=== PATIENT | female | born 1990 | race Caucasian/White ===

== ENCOUNTER 2018-07-19 04:45 | Inpatient (IN) | payer BC ==
[2018-07-18 09:53] LABS: ABSOLUTE EOSINOPHILS # (AUTO) 0.2 10^3/uL (0.0-0.6); ABSOLUTE LYMPHOCYTES (AUTO) 1.4 10^3/uL (0.5-4.7); ABSOLUTE MONOCYTES (AUTO) 0.6 10^3/uL (0.1-1.4); ABSOLUTE NEUT (AUTO) 9.8 10^3/uL (1.7-8.2); EOSINOPHILS % (AUTO) 1.8 % (0-6); HEMATOCRIT 38.9 % (36.0-47.0); HEMOGLOBIN 13.2 g/dL (12.0-15.5); LYMPHOCYTES % (AUTO) 11.7 % (13-45); MEAN CORPUSCULAR HEMOGLOBIN 30.8 pg (27.0-33.4); MEAN CORPUSCULAR VOLUME 90 fl (80-97); MONOCYTES % (AUTO) 5.2 % (3-13); PLATELET COUNT 190 10^3/uL (150-450); RED CELL DISTRIBUTION WIDTH 13.9 % (11.5-14.0); SEGMENTED NEUTROPHILS % (AUTO) 81.3 % (42-78); TOTAL CELLS COUNTED % (AUTO) 100 %; WHITE BLOOD COUNT 12.1 10^3/uL (4.0-10.5)
[2018-07-18 10:06] LABS: APPEARANCE,URINE CLEAR; BILIRUBIN,URINE NEGATIVE (NEGATIVE); COLOR,URINE YELLOW; GLUCOSE, URINE NEGATIVE (NEGATIVE); KETONES,URINE NEGATIVE (NEGATIVE); LEUKOCYTE ESTERASE,URINE SMALL (NEGATIVE); NITRITE,URINE NEGATIVE (NEGATIVE); PROTEIN,URINE NEGATIVE (NEGATIVE); URINE SPECIFIC GRAVITY 1.005; UROBILINOGEN,URINE NEGATIVE mg/dL (<2.0)
[2018-07-18 10:18] LABS: URINE AMPHETAMINES SCREEN NEGATIVE; URINE BARBITURATES SCREEN NEGATIVE; URINE BENZODIAZEPINES SCREEN NEGATIVE; URINE COCAINE SCREEN NEGATIVE; URINE MARIJUANA (THC) SCREEN NEGATIVE; URINE METHADONE SCREEN NEGATIVE; URINE PHENCYCLIDINE SCREEN NEGATIVE
[2018-07-19] MEDS ORDERED: CEFAZOLIN 1 GM/D5W RTU 1 GM/50 ML RTUPB IV PRN (05:00)
[2018-07-19] MEDS ORDERED: LIDOCAINE 0.5% INJ-PF (5 MG/ML) 50 ML SDV SUBCUT PRN (05:00)
[2018-07-19] MEDS ORDERED: RINGERS SOLUTION,LACTATED 1,500 ML IV PRN (05:00)
[2018-07-19] MEDS ORDERED: LACTATED RINGERS 1000 ML IV PRN (05:00)
[2018-07-19] MEDS ORDERED: OXYTOCIN 10 UNIT/ML VIAL ONE ×2 (06:58→09:07)
[2018-07-19] MEDS ORDERED: PHENYLEPHRINE HCL INJ/PF 10 MG/1 ML SDV ONE (06:58)
[2018-07-19] MEDS ORDERED: CITRIC ACID/SODIUM CITRATE ORAL SOLN 15 ML UDCUP ONE ×2 (06:58→09:07)
[2018-07-19] MEDS ORDERED: MIDAZOLAM 2 MG/2 ML INJ ONE ×3 (06:58→09:08)
[2018-07-19] MEDS ORDERED: OXYTOCIN/NORMAL SALINE 20 UNIT/1,000 ML RTUINJ ONE ×3 (06:58→09:56)
[2018-07-19] MEDS ORDERED: ONDANSETRON HCL INJ/PF 4 MG/2 ML SDV ONE ×2 (06:59→10:26)
[2018-07-19] MEDS ORDERED: FENTANYL CITRATE INJ/PF 100 MCG/2 ML AMPUL ONE (08:32)
[2018-07-19] MEDS ORDERED: RINGERS SOLUTION,LACTATED 1,000 ML IV PRN (08:57)
[2018-07-19] MEDS ORDERED: SIMETHICONE 80 MG TAB.CHEW PO PRN (08:57)
[2018-07-19] MEDS ORDERED: MEASLES,MUMPS&RUBELLA VACC/PF 0.5 ML VIAL SUBCUT PRN (08:57)
[2018-07-19] MEDS ORDERED: DIPH/PERTUSS(ACELL)/TETANUS VAC/PF 0.5 ML SYR (>=10YO) IM PRN (08:57)
[2018-07-19] MEDS ORDERED: PROMETHAZINE HCL INJ 25 MG/1 ML VIAL IV PRN (08:57)
[2018-07-19] MEDS ORDERED: HYDROMORPHONE HCL INJ/PF 2 MG/ML AMPULE IV PRN (08:57)
[2018-07-19] MEDS ORDERED: ACETAMINOPHEN 325 MG TABLET PO PRN (08:57)
[2018-07-19] MEDS ORDERED: OXYTOCIN/NORMAL SALINE 20 UNIT/1,000 ML RTUINJ IV PRN (08:57)
[2018-07-19] MEDS ORDERED: ACETAMINOPHEN 1,000 MG/100 ML RTUPB IV PRN (08:57)
--- NOTE | 2018-07-19 09:01 | PDOC DELIVERY SUMMARY ---
Delivery Summary - Maternal Hx : II Hx # Term Pregnancies: 1 DINORAH: 07/25/18 Gestational Age: 39+1 Ruptured Membranes: AROM Time of Rupture: 08:16 Fluids: Clear - Delivery Presentation: Vertex Heart Rate Monitoring: Done Pre-Operatively Support Person Present: Yes Location: OR : Scheduled Placenta: Within Normal Limits Delivery of Placenta Date: 07/19/18 Delivery of Placenta Time: 08:18 - Assess and Care Baby 1 Female Delivery of Date: 07/19/18 Delivery of Time: 08:17 at 1 minute: 9 at 5 minutes: 9 Preprinted Number On Band: [id number] Infant Skin to Skin: No To Nursery At: 08:24 Mode of Transport: Bassinet Delivery Weight: 3,745 Delivery Length: 20.5 in - Delivery Personnel Carton Making Machine Operator: JEFERSON RIOS RN: DEIDRE RN: VIANCA CHILDRESS MD: HARLAN TIERNEY
[2018-07-19] MEDS ORDERED: ACETAMINOPHEN 1,000 MG/100 ML RTUPB IV ONE (09:03)
[2018-07-19] MEDS ORDERED: MORPHINE SULFATE 10 MG/ML INJ ONE (09:03)
--- NOTE | 2018-07-19 09:03 | Operative Report ---
Operative Report DATE OF SURGERY: 07/19/18 PREOPERATIVE DIAGNOSIS: Patient desires a repeat to prevent risk from uterine rupture POSTOPERATIVE DIAGNOSIS: Same OPERATION: Repeat via low transverse uterine incision SURGEON: HARLAN TIERNEY ANESTHESIA: Spinal TISSUE REMOVED OR ALTERED: Placenta COMPLICATIONS: None ESTIMATED BLOOD LOSS: 250 cc INTRAOPERATIVE FINDINGS: Viable female , normal tubes and ovaries PROCEDURE: Patient was taken to the OR and placed in supine position after her spinal anesthesia. She is prepared and draped in sterile fashion. Sutton was placed for drainage of the bladder. Low transverse incision was made and carried down the level of the fascia. The fascial incision was made with knife and extended bilaterally with curved Coleman scissors. The fascia was off the rectus muscles using sharp and blunt dissection. The rectus muscles are in the midline. The peritoneum was entered without incident. Bladder blade was placed in uterine segment was identified. A low transverse incision was made creating a bladder flap. Bladder blade was placed low transverse uterine incision was made with the knife and extended with fingertips. The baby was delivered with some fundal pressure. Mouth and nose were suctioned free. The cord is doubly clamped and cut. Baby is passed off to the library clerk in attendance. The placenta was manually extracted with trailing membranes. The uterus was externalized wrapped in a moist lap sponge. Uterine contents wiped free. Uterus was closed with a running locking layer of 0 chromic suture using the second layer to imbricate the first completing a double layer closure of the uterus. The serosa was closed with a running 2-0 chromic stitch. The pelvis was irrigated and suctioned free of fluid the uterus was replaced in the abdomen. The abdominal wall peritoneum was closed with running 2-0 chromic stitch. Fascia was closed with a running 0 Vicryl in 2 segments. Brittany's layer was brought together with 0 plain gut stitch and the skin was closed with running subcuticular 4-0 undyed Vicryl stitch. The wound was dressed mother and baby did well.
[2018-07-19] MEDS ORDERED: KETOROLAC TROMETHAMINE INJ/PF 30 MG/1 ML SDV ONE (09:07)
[2018-07-19] MEDS ORDERED: HYDROMORPHONE HCL INJ/PF 2 MG/ML AMPULE ONE (09:41)
[2018-07-19] MEDS ORDERED: MORPHINE SULFATE 10 MG/ML INJ IV ONE (09:43)
[2018-07-19] MEDS: PRENATAL VITAMIN W DHA CAPSULE PO SCH (12:45)
[2018-07-19] MEDS: DOCUSATE SODIUM 100 MG CAPSULE PO SCH ×2 (12:45→17:57)
[2018-07-19] MEDS ORDERED: KETOROLAC TROMETHAMINE INJ/PF 30 MG/1 ML SDV IV SCH (14:00)
[2018-07-19] MEDS: OXYCODONE-ACETAMINOPHEN 5-325 MG TABLET PO PRN ×2 (14:35→20:40)
[2018-07-19] MEDS ORDERED: KETOROLAC TROMETHAMINE 60 MG/2 ML SDV ONE (14:53)
[2018-07-19] MEDS: KETOROLAC TROMETHAMINE INJ/PF 30 MG/1 ML SDV IV SCH ×2 (17:07→23:30)
[2018-07-20] MEDS: OXYCODONE-ACETAMINOPHEN 5-325 MG TABLET PO PRN ×3 (04:03→20:19)
[2018-07-20 07:26] LABS: HEMATOCRIT 32.6 % (36.0-47.0); MEAN CORPUSCULAR HEMOGLOBIN 31.1 pg (27.0-33.4); MEAN CORPUSCULAR HGB CONC 33.6 g/dL (32.0-36.0); MEAN CORPUSCULAR VOLUME 93 fl (80-97); PLATELET COUNT 140 10^3/uL (150-450); RED BLOOD COUNT 3.52 10^6/uL (3.72-5.28); WHITE BLOOD COUNT 14.8 10^3/uL (4.0-10.5)
[2018-07-20 07:29] LABS: HEMOGLOBIN 10.9 g/dL (12.0-15.5)
[2018-07-20] MEDS: KETOROLAC TROMETHAMINE INJ/PF 30 MG/1 ML SDV IV SCH (08:16)
[2018-07-20] MEDS ORDERED: SIMETHICONE 80 MG TAB.CHEW PO SCH (09:00)
[2018-07-20] MEDS ORDERED: IBUPROFEN 600 MG TABLET PO SCH (09:00)
[2018-07-20] MEDS: DOCUSATE SODIUM 100 MG CAPSULE PO SCH ×2 (09:03→18:02)
[2018-07-20] MEDS: PRENATAL VITAMIN W DHA CAPSULE PO SCH (09:03)
[2018-07-20] MEDS: IBUPROFEN 800 MG TABLET PO PRN ×2 (09:15→18:04)
--- NOTE | 2018-07-20 12:31 | PDOC PROGRESS REPORT ---
Subjective-OB Progress Note for:: 07/20/18 Subjective: reports pain controlled with current meds, bleeding slowing. denies needs. + passing gas Physical Exam (OB) Vital Signs: Temp Pulse Resp BP Pulse Ox 98.0 F 81 16 120/83 100 07/20/18 09:03 07/20/18 09:03 07/20/18 09:03 07/20/18 09:03 07/20/18 09:03 Intake & Output 07/19/18 07/20/18 07/21/18 06:59 06:59 06:59 Intake Total 1220 1400 Output Total 1200 Balance 20 1400 Weight 113.852 kg - Dressing Removed: No Incision: Well Approximated - Abdomen Description: Tender, Soft, Round Hernia Present: No Fundal Description: Firm, Midline Fundal Height: u/u - u/2 - Extremities Lower extremities: Herman's sign - neg Calf: Normal, Nontender Objective-Diagnostic Laboratory: 07/20/18 07:06 07/20/18 07:06 WBC 14.8 H RBC 3.52 L Hgb 10.9 L D Hct 32.6 L MCV 93 MCH 31.1 MCHC 33.6 RDW 14.0 Plt Count 140 L Assessment and Plan(PN) - Assessment and Plan (1) S/P repeat low transverse Is this a current diagnosis for this admission?: Yes - Time Spent with Patient Time with patient: Less than 15 minutes Medications reviewed and adjusted accordingly: Yes - Disposition Anticipated Discharge: Home Within: within 48 hours
[2018-07-21] MEDS: IBUPROFEN 800 MG TABLET PO PRN ×4 (00:42→21:29)
[2018-07-21] MEDS: PRENATAL VITAMIN W DHA CAPSULE PO SCH (09:41)
[2018-07-21] MEDS: DOCUSATE SODIUM 100 MG CAPSULE PO SCH ×2 (09:42→17:50)
--- NOTE | 2018-07-21 09:57 | PDOC PROGRESS REPORT ---
Subjective-OB Progress Note for:: 07/21/18 Subjective: pain controlled with current meds, bleeding slowing, breast and formula feeding. concerned about bruising on mons Physical Exam (OB) Vital Signs: Temp Pulse Resp BP Pulse Ox 98.3 F 95 16 129/84 H 100 07/21/18 07:56 07/21/18 07:56 07/21/18 07:56 07/21/18 07:56 07/21/18 07:56 Intake & Output 07/20/18 07/21/18 07/22/18 06:59 06:59 06:59 Intake Total 1220 2200 400 Output Total 1200 Balance 20 2200 400 - Dressing Removed: No - Opsite, scant dry drainage noted Incision: Well Approximated - Abdomen Description: Tender - slightly, Soft, Round Hernia Present: No Fundal Description: Firm, Midline Fundal Height: u/u - u/2 - Genitourinary Female External exam: Bruising - on mons, dark purple, soft and nontender - Extremities Lower extremities: Herman's sign - neg Calf: Normal, Nontender Objective-Diagnostic Laboratory: 07/20/18 07:06 Assessment and Plan(PN) - Assessment and Plan (1) S/P repeat low transverse Is this a current diagnosis for this admission?: Yes - Time Spent with Patient Time with patient: Less than 15 minutes Medications reviewed and adjusted accordingly: Yes - Disposition Anticipated Discharge: Home Within: within 24 hours
[2018-07-21] MEDS: OXYCODONE-ACETAMINOPHEN 5-325 MG TABLET PO PRN ×2 (12:12→19:18)
[2018-07-22] MEDS: OXYCODONE-ACETAMINOPHEN 5-325 MG TABLET PO PRN ×2 (06:19→11:33)
[2018-07-22] MEDS: IBUPROFEN 800 MG TABLET PO PRN ×2 (06:19→13:57)
[2018-07-22] MEDS: PRENATAL VITAMIN W DHA CAPSULE PO SCH (09:39)
[2018-07-22] MEDS: DOCUSATE SODIUM 100 MG CAPSULE PO SCH (09:39)
--- NOTE | 2018-07-22 10:06 | PDOC DISCHARGE SUMMARY ---
Final Diagnosis Discharge Date: 07/22/18 - Final Diagnosis (1) S/P repeat low transverse Is this a current diagnosis for this admission?: Yes Discharge Data - Discharge Medication Prescriptions: Ibuprofen [Motrin 800 mg Tablet] 800 mg PO Q8HP PRN #90 tablet PRN Reason: Oxycodone HCl/Acetaminophen [Percocet 5-325 mg Tablet] 1 tab PO Q4HP PRN #30 tablet PRN Reason: Home Medications: Pnv95/Iron Fum/Folic Acid [ Caplet] 1 tab PO DAILY 03/30/15 Ibuprofen [Motrin 800 mg Tablet] 800 mg PO Q8HP PRN #90 tablet 07/22/18 Oxycodone HCl/Acetaminophen [Percocet 5-325 mg Tablet] 1 tab PO Q4HP PRN #30 tablet 07/22/18 Intrapartum Procedure(s): : Low Cervical, Transverse - Diagnosis Test Laboratory: Temp Pulse Resp BP Pulse Ox 98.3 F 58 L 16 136/75 H 98 07/22/18 09:07 07/22/18 09:07 07/22/18 09:07 07/22/18 09:07 07/22/18 09:07 07/18/18 07/18/18 07/20/18 09:24 09:24 07:06 RBC 4.30 3.52 L Hgb 13.2 10.9 L D Hct 38.9 32.6 L Urine Opiates Screen NEGATIVE - Discharge information/Instructions Discharge Activity: Balance Activity w/Rest, No Lifting Over 10 Pounds, No Lifting/Push/Pulling, Pelvic Rest, No tub bath Discharge Diet: Regular Disposition: HOME, SELF-CARE Follow up with: [facility] in: 1, Weeks
[2018-07-22 14:01] VITALS: BP 128/77
== END 2018-07-22 14:36 | disposition home or self-care (01) | DRG 788 ==
LOC: 2S 04:45
PROVIDERS: ADMIT Obstetrics & Gynecology; ATTEND Obstetrics & Gynecology
PROC: 10D00Z1 Extraction of Products of Conception, Low, Open Approach (ICD-10-PCS; principal; 2018-07-19 07:45)
DX: O34.211 Maternal care for low transverse scar from previous cesarean delivery (principal); N85.8 Other specified noninflammatory disorders of uterus; O99.52 Diseases of the respiratory system complicating childbirth; J45.909 Unspecified asthma, uncomplicated; Z3A.39 39 weeks gestation of pregnancy; Z37.0 Single live birth
CPT/HCPCS: 1961; 36415; 80307; 81001; 85025; 85027; 86850; 86900; 86901; 94799; J0131; J1170; J1885; J2250; J2270; J2370; J2405; J2550; J2590; J3010; J3490; J7120

== ENCOUNTER 2018-08-05 16:36 | Observation (INO) | payer BC ==
--- NOTE | 2018-08-05 18:09 | ER Document Report ---
Addendum entered and electronically signed by GURPREET JOHNSON PA-C 08/05/18 18:11: Course - Re-evaluation Re-evalutation: 08/05/18 18:11 cranial nerves grossly intact. no nystagmus nih 0 - Vital Signs Vital signs: Temp Pulse Resp BP Pulse Ox 97.9 F 66 16 185/118 H 99 08/05/18 16:43 08/05/18 16:43 08/05/18 16:43 08/05/18 16:43 08/05/18 16:43 Original Note: ED Medical Screen (RME) - General Chief Complaint: Dizziness Stated Complaint: DIZZINESS Time Seen by Provider: 08/05/18 18:03 TRAVEL OUTSIDE OF THE [place] IN LAST 30 DAYS: No - HPI Notes: 08/05/18 18:08 Patient is a 28-year-old female with no significant past medical history aside from about 17 days ago who presents complaining of feeling dizzy and having chest heaviness that worsened today. Patient states that she has been having occasional dizziness since having high blood pressure after her C- section. She was seen by her GLASS ROBOT OPERATOR 3 days ago and they are aware of her high blood pressure. She is not currently on any medicines at this time. Denies MCCLELLAN, fever, changes in behavior/mentation/speech/vision, neck pain, URI, SOB, Abd pain, n/v/d, dysuria, back pain, or rash. I have treated and performed a rapid initial assessment of this patient. A comprehensive ED assessment and evaluation of the patient, analysis of test results and completion of medical decision making process will be conducted by additional ED providers. PHYSICAL EXAMINATION: GENERAL: Well-appearing, well-nourished and in no acute distress. A&Ox4. Answers questions appropriately. LUNGS: Breath sounds clear to auscultation bilaterally and equal. No wheezes rales or rhonchi. HEART: Regular rate and rhythm without murmurs, rubs, gallops. Extremities: No cyanosis, clubbing, or edema b/l. NEUROLOGICAL: Normal speech, normal gait. PSYCH: Normal mood, normal affect. - Related Data Allergies/Adverse Reactions: adhesive tape Adverse Reaction (Verified 08/05/18 16:38) Past Medical History - Social History Chew tobacco use (# tins/day): No Frequency of alcohol use: None Drug Abuse: None - Past Medical History Cardiac Medical History: Denies: Hx Pulmonary Embolism Pulmonary Medical History: Reports: Hx Asthma - MILD SEASONAL Denies: Hx Sleep Apnea, Hx Tuberculosis Renal/ Medical History: Denies: Hx Peritoneal Dialysis Past Surgical History: Reports: Hx Section - Immunizations Hx Diphtheria, Pertussis, Tetanus Vaccination: Yes History of Influenza Vaccine for 12/2016 - 05/2017 Season: Yes Physical Exam - Vital signs Vitals: Temp Pulse Resp BP Pulse Ox 97.9 F 66 16 185/118 H 99 08/05/18 16:43 08/05/18 16:43 08/05/18 16:43 08/05/18 16:43 08/05/18 16:43 Course - Vital Signs Vital signs: Temp Pulse Resp BP Pulse Ox 97.9 F 66 16 185/118 H 99 08/05/18 16:43 08/05/18 16:43 08/05/18 16:43 08/05/18 16:43 08/05/18 16:43
[2018-08-05 18:49] LABS: APPEARANCE,URINE CLEAR; BILIRUBIN,URINE NEGATIVE (NEGATIVE); COLOR,URINE YELLOW; GLUCOSE, URINE NEGATIVE (NEGATIVE); KETONES,URINE NEGATIVE (NEGATIVE); LEUKOCYTE ESTERASE,URINE LARGE (NEGATIVE); NITRITE,URINE NEGATIVE (NEGATIVE); PROTEIN,URINE NEGATIVE (NEGATIVE); URINE SPECIFIC GRAVITY 1.012; UROBILINOGEN,URINE NEGATIVE mg/dL (<2.0)
[2018-08-05 18:52] LABS: ABSOLUTE EOSINOPHILS # (AUTO) 0.4 10^3/uL (0.0-0.6); ABSOLUTE LYMPHOCYTES (AUTO) 1.6 10^3/uL (0.5-4.7); ABSOLUTE MONOCYTES (AUTO) 0.4 10^3/uL (0.1-1.4); ABSOLUTE NEUT (AUTO) 8.6 10^3/uL (1.7-8.2); BASOPHILS % (AUTO) 0.4 % (0-2); EOSINOPHILS % (AUTO) 3.8 % (0-6); HEMATOCRIT 44.9 % (36.0-47.0); LYMPHOCYTES % (AUTO) 14.6 % (13-45); MEAN CORPUSCULAR HEMOGLOBIN 29.5 pg (27.0-33.4); MEAN CORPUSCULAR HGB CONC 33.3 g/dL (32.0-36.0); MEAN CORPUSCULAR VOLUME 89 fl (80-97); MONOCYTES % (AUTO) 3.6 % (3-13); PLATELET COUNT 272 10^3/uL (150-450); RED BLOOD COUNT 5.08 10^6/uL (3.72-5.28); RED CELL DISTRIBUTION WIDTH 13.6 % (11.5-14.0); SEGMENTED NEUTROPHILS % (AUTO) 77.6 % (42-78); TOTAL CELLS COUNTED % (AUTO) 100 %; WHITE BLOOD COUNT 11.1 10^3/uL (4.0-10.5)
[2018-08-05 19:02] LABS: ALANINE AMINOTRANSFERASE 25 U/L (9-52); ALBUMIN 4.7 g/dL (3.5-5.0); ALKALINE PHOSPHATASE 97 U/L (38-126); ANION GAP 13 (5-19); ASPARTATE AMINO TRANSFERASE 27 U/L (14-36); BILIRUBIN,DIRECT 0.3 mg/dL (0.0-0.4); BILIRUBIN,TOTAL 0.6 mg/dL (0.2-1.3); BLOOD UREA NITROGEN 16 mg/dL (7-20); CALCIUM 9.5 mg/dL (8.4-10.2); CARBON DIOXIDE 25 mmol/L (22-30); CHLORIDE 109 mmol/L (98-107); GLUCOSE 95 mg/dL (75-110); SODIUM 147.1 mmol/L (137-145); TOTAL PROTEIN 8.4 g/dL (6.3-8.2)
--- NOTE | 2018-08-05 19:02 | RADIOLOGY REPORT (SQ) ---
EXAM DESCRIPTION: CHEST SINGLE VIEW COMPLETED DATE/TIME: 08/05/2018 6:49 pm REASON FOR STUDY: chest heaviness COMPARISON: None. EXAM PARAMETERS: NUMBER OF VIEWS: One view. TECHNIQUE: Single frontal radiographic view of the chest acquired. RADIATION DOSE: NA LIMITATIONS: None. FINDINGS: LUNGS AND PLEURA: No opacities, masses or pneumothorax. No pleural effusion. MEDIASTINUM AND HILAR STRUCTURES: No masses. Contour normal. HEART AND VASCULAR STRUCTURES: Cardiomegaly. BONES: No acute findings. HARDWARE: None in the chest. OTHER: No other significant finding. IMPRESSION: Cardiomegaly without acute abnormality of the lungs. TECHNICAL DOCUMENTATION: JOB ID: [id number] [email or web address] All Rights Reserved Reading location - IP/workstation name: [email or web address]
[2018-08-05] MEDS ORDERED: HYDRALAZINE HCL INJ/PF 20 MG/1 ML SDV IV ONE ×2 (19:32→20:14)
[2018-08-05] MEDS ORDERED: NIFEDIPINE 30 MG TAB.ER.24 PO ONE ×2 (21:21→23:00)
--- NOTE | 2018-08-05 21:33 | ER Document Report ---
ED General - General Chief Complaint: Dizziness Stated Complaint: DIZZINESS Time Seen by Provider: 08/05/18 18:03 Mode of Arrival: Ambulatory Information source: Patient Notes: This is a 28-year-old female who is 2 para 2, status post July 19 (scheduled ). Patient states that the actual delivery was uneventful and started having an issue with her blood pressure several days after the C- section. She states she did have an elevated blood pressure and pedal edema and was given some Lasix for 5 days earlier this week. She presents tonight with some dizziness, intermittently hard time breathing in the settings of an elevated blood pressure. Patient denies any headache to me. At the time of my evaluation, she denied chest pain. She did report intermittent palpitations. She denied any significant shortness of breath. She denies any abdominal pain and states she is been eating and drinking okay. TRAVEL OUTSIDE OF THE [place] IN LAST 30 DAYS: No - HPI Onset: Last week Onset/Duration: Gradual Quality of pain: No pain Severity: None Pain Level: Denies Associated symptoms: denies: Fever, Nausea, Vomiting, Shortness of breath Exacerbated by: Denies Relieved by: Denies Similar symptoms previously: Yes Recently seen / treated by doctor: Yes - Related Data Allergies/Adverse Reactions: adhesive tape Adverse Reaction (Verified 08/05/18 16:38) Past Medical History - General Information source: Patient - Social History Smoking Status: Never Smoker Cigarette use (# per day): No Chew tobacco use (# tins/day): No Frequency of alcohol use: None Drug Abuse: None Lives with: Family Family History: Reviewed & Not Pertinent Patient has suicidal ideation: No Patient has homicidal ideation: No - Past Medical History Cardiac Medical History: Reports: None Denies: Hx Pulmonary Embolism Pulmonary Medical History: Reports: Hx Asthma - MILD SEASONAL Denies: Hx Sleep Apnea, Hx Tuberculosis Neurological Medical History: Reports: None Endocrine Medical History: Reports: None Renal/ Medical History: Denies: Hx Peritoneal Dialysis Malignancy Medical History: Reports: None GI Medical History: Reports: None Musculoskeletal Medical History: Reports None Skin Medical History: Reports None Psychiatric Medical History: Reports: None Traumatic Medical History: Reports: None Infectious Medical History: Reports: None Past Surgical History: Reports: Hx Section - Immunizations Hx Diphtheria, Pertussis, Tetanus Vaccination: Yes Review of Systems - Review of Systems Constitutional: denies: Chills, Fever EENT: No symptoms reported Cardiovascular: See HPI Respiratory: denies: Hemoptysis, Wheezing Gastrointestinal: denies: Abdominal pain, Nausea, Vomiting Genitourinary: No symptoms reported Female Genitourinary: No symptoms reported Musculoskeletal: No symptoms reported Skin: No symptoms reported Hematologic/Lymphatic: No symptoms reported Neurological/Psychological: Other - No headache for the past day. denies: Conf usion, Weakness, Seizure, Speech impairment, Numbness Physical Exam - Vital signs Vitals: Temp Pulse Resp BP Pulse Ox 97.9 F 66 16 185/118 H 99 08/05/18 16:43 08/05/18 16:43 08/05/18 16:43 08/05/18 16:43 08/05/18 16:43 Notes: Physical exam: GENERAL: Blood pressure was 202/138. Patient's pulse was 70. Her respiratory rate was 18 and her oxygen saturation 99% on room air. Patient is alert and oriented x3. She denies any headache. HEAD: Atraumatic, normocephalic. EYES: Pupils equal round and reactive to light, extraocular movements intact, sclera anicteric, conjunctiva are normal. ENT: TMs normal, nares patent, oropharynx clear without exudates. Moist mucous membranes. NECK: Normal range of motion, supple without obvious mass or JVD. LUNGS: Breath sounds clear to auscultation bilaterally and equal. No wheezes rales or rhonchi. HEART: Regular rate and rhythm without murmurs, rubs or gallops. ABDOMEN: Soft, normoactive bowel sounds. No tenderness to palpation. No guarding, no rebound. No masses appreciated. EXTREMITIES: Normal range of motion, no pitting or edema. No clubbing or cyanosis. NEUROLOGICAL: Cranial nerves II through XII grossly intact. Normal speech, moving all extremities. PSYCH: Normal mood, normal affect. SKIN: Warm, Dry, normal turgor, no rashes or lesions noted. Course - Re-evaluation Re-evalutation: 08/05/18 21:41 Note: I did discuss the case with Dr. Covington (reproduction machine loader) regarding the palpitations and ventricular ectopy. He states that this is not uncommon and there is no specific treatment at this time. We also discussed the BNP which she felt was probably more from the blood pressure. He recommended that the first thing we would treat as the blood pressure. As far as the palpitations, he is happy to see the patient in his office and is given me his cell phone number to give to the patient. I did discuss the elevated blood pressure in the setting of recent with Dr. Ulloa (the patient's OB) who agreed with the current blood pressure medicine. I will continue to monitor. 08/05/18 22:11 Repeat exam: Patient is comfortable butternut blood pressure continues to bounce around quite a bit. Therefore, the plan would be to continue to watch the patient in for better control the blood pressure. 08/05/18 22:33 - Vital Signs Vital signs: Temp Pulse Resp BP Pulse Ox 97.9 F 66 17 149/95 H 99 08/05/18 16:43 08/05/18 16:43 08/05/18 21:31 08/05/18 21:31 08/05/18 21:31 - Laboratory Result Diagrams: 08/05/18 18:06 08/05/18 18:06 Laboratory results interpreted by me: 08/05/18 08/05/18 08/05/18 18:06 18:06 18:06 WBC 11.1 H Absolute Neutrophils 8.6 H Sodium 147.1 H Chloride 109 H NT-Pro-B Natriuret Pep Total Protein 8.4 H Ur Leukocyte Esterase LARGE H Urine Ascorbic Acid 40 H 08/05/18 18:06 WBC Absolute Neutrophils Sodium Chloride NT-Pro-B Natriuret Pep 1040 H Total Protein Ur Leukocyte Esterase Urine Ascorbic Acid - Diagnostic Test Radiology reviewed: Image reviewed, Reports reviewed - Single view (AP) shows no infiltrates. - EKG Interpretation by Me Rate: Normal Rhythm: NSR - First EKG shows sinus rhythm with a ventricular rate of 70, no acute ST-T wave changes. Second EKG shows sinus tachycardia with a ventricular rate of 106, bigeminy. No acute ST-T wave changes. Discharge - Discharge Clinical Impression: hypertension Condition: Stable Disposition: ADMITTED OBSERVATION Admitting Provider: [facility] - Dr. Antonio Ulloa Unit Admitted: Post
[2018-08-05] MEDS ORDERED: ACETAMINOPHEN 325 MG TABLET PO ONE (22:16)
--- NOTE | 2018-08-05 23:26 | PDOC H&P ---
History of Present Illness Admission Date/PCP: 08/05/18 22:38 Patient complains of: dizziness History of Present Illness: JANAK MARLOW is a 28 year old female with a c section on 19 July. Her C section was uneventful but after going home she began having blood pressure problems. She presents to the ER for treatment. She declines headache. Past Medical History Gynecological Infection: No Obstetrical History: none - Cardiac Medical History: Reports: None Denies: Pulmonary Embolism Pulmonary Medical History: Reports: Asthma - MILD SEASONAL Denies: Sleep Apnea, Tuberculosis Neurological Medical History: Reports: None Endocrine Medical History: Reports: None Malignancy Medical History: Reports: None GI Medical History: Reports: None Musculoskeltal Medical History: Reports: None Skin Medical History: Reports: None Psychiatric Medical History: Reports: None Traumatic Medical History: Reports: None Infectious Medical History: Reports: None Past Surgical History Past Surgical History: Reports: Section Social History Lives with: Family Smoking Status: Never Smoker Family History Family History: Reviewed & Not Pertinent Parental Family History Reviewed: Yes Children Family History Reviewed: Yes Sibling(s) Family History Reviewed.: Yes Medication/Allergy Home Medications: Pnv95/Iron Fum/Folic Acid [ Caplet] 1 tab PO DAILY 03/30/15 Ibuprofen [Motrin 800 mg Tablet] 800 mg PO Q8HP PRN #90 tablet 07/22/18 Oxycodone HCl/Acetaminophen [Percocet 5-325 mg Tablet] 1 tab PO Q4HP PRN #30 tablet 07/22/18 Allergies/Adverse Reactions: adhesive tape Adverse Reaction (Verified 08/05/18 16:38) Review of Systems Constitutional: ABSENT: chills, fever(s), headache(s), weight gain, weight loss Eyes: ABSENT: visual disturbances Gastrointestinal: ABSENT: abdominal pain, constipation, diarrhea, hematemesis, hematochezia, nausea, vomiting Genitourinary: ABSENT: dysuria, hematuria Musculoskeletal: ABSENT: joint swelling Neurological: ABSENT: abnormal gait, abnormal speech, confusion, dizziness, focal weakness, syncope Physical Exam - Physical Exam Vital Signs: Temp Pulse Resp BP Pulse Ox 97.9 F 66 17 149/95 H 99 08/05/18 16:43 08/05/18 16:43 08/05/18 21:31 08/05/18 21:31 08/05/18 21:31 Intake & Output 08/04/18 08/05/18 08/06/18 06:59 06:59 06:59 Weight 104.2 kg General appearance: PRESENT: no acute distress, well-developed, well-nourished Head exam: PRESENT: atraumatic, normocephalic Eye exam: PRESENT: conjunctiva pink, EOMI, PERRLA. ABSENT: scleral icterus Neck exam: PRESENT: full ROM. ABSENT: carotid bruit, JVD, lymphadenopathy, thyromegaly Respiratory exam: PRESENT: unlabored Cardiovascular exam: PRESENT: RRR Vascular exam: PRESENT: normal capillary refill GI/Abdominal exam: PRESENT: normal bowel sounds, soft, other - Incision is clean dry intact with small noninfected appearing seroma at the left incision. ABSENT: distended, guarding, mass, organolmegaly, rebound, tenderness Extremities exam: PRESENT: full ROM. ABSENT: calf tenderness, clubbing, pedal edema Neurological exam: PRESENT: alert, awake, oriented to person, oriented to place, oriented to time, oriented to situation, CN II-XII grossly intact. ABSENT: motor sensory deficit Psychiatric exam: PRESENT: appropriate affect, normal mood. ABSENT: homicidal ideation, suicidal ideation Result Laboratory Results: 08/05/18 18:06 08/05/18 18:06 08/05/18 08/05/18 08/05/18 18:06 18:06 18:06 WBC 11.1 H RBC 5.08 Hgb 15.0 Hct 44.9 MCV 89 D MCH 29.5 MCHC 33.3 RDW 13.6 Plt Count 272 Seg Neutrophils % 77.6 Lymphocytes % 14.6 Monocytes % 3.6 Eosinophils % 3.8 Basophils % 0.4 Absolute Neutrophils 8.6 H Absolute Lymphocytes 1.6 Absolute Monocytes 0.4 Absolute Eosinophils 0.4 Absolute Basophils 0.0 Sodium 147.1 H Potassium 4.0 Chloride 109 H Carbon Dioxide 25 Anion Gap 13 BUN 16 Creatinine 0.81 Est GFR ( Amer) > 60 Est GFR (Non-Af Amer) > 60 Glucose 95 Calcium 9.5 Magnesium 2.3 Total Bilirubin 0.6 AST 27 ALT 25 Alkaline Phosphatase 97 Total Protein 8.4 H Albumin 4.7 TSH 0.94 Urine Color Urine Appearance Urine pH Ur Specific Home Urine Protein Urine Glucose (UA) Urine Ketones Urine Blood Urine Nitrite Ur Leukocyte Esterase Urine WBC (Auto) Urine RBC (Auto) 08/05/18 18:06 WBC RBC Hgb Hct MCV MCH MCHC RDW Plt Count Seg Neutrophils % Lymphocytes % Monocytes % Eosinophils % Basophils % Absolute Neutrophils Absolute Lymphocytes Absolute Monocytes Absolute Eosinophils Absolute Basophils Sodium Potassium Chloride Carbon Dioxide Anion Gap BUN Creatinine Est GFR ( Amer) Est GFR (Non-Af Amer) Glucose Calcium Magnesium Total Bilirubin AST ALT Alkaline Phosphatase Total Protein Albumin TSH Urine Color YELLOW Urine Appearance CLEAR Urine pH 6.0 Ur Specific Home 1.012 Urine Protein NEGATIVE Urine Glucose (UA) NEGATIVE Urine Ketones NEGATIVE Urine Blood NEGATIVE Urine Nitrite NEGATIVE Ur Leukocyte Esterase LARGE H Urine WBC (Auto) 26 Urine RBC (Auto) 5 08/05/18 08/05/18 18:06 18:06 Troponin I < 0.012 NT-Pro-B Natriuret Pep 1040 H Impressions: Chest X-Ray 08/05/18 18:07 IMPRESSION: Cardiomegaly without acute abnormality of the lungs. Hypertension Assessment & Plan - Diagnosis (1) Hypertension Qualifiers: Hypertension type: other secondary hypertension Qualified Code(s): I15.8 - Other secondary hypertension Is this a current diagnosis for this admission?: Yes (2) S/P repeat low transverse Is this a current diagnosis for this admission?: Yes Plan: Admit for treatment of the hypertension.
--- NOTE | 2018-08-06 00:03 | EKG REPORT ---
SEVERITY:- NORMAL ECG - SINUS RHYTHM : Confirmed by: Mary Brice 06-Aug-2018 00:02:46
--- NOTE | 2018-08-06 00:03 | EKG REPORT ---
SEVERITY:- ABNORMAL ECG - SINUS TACHYCARDIA VENTRICULAR BIGEMINY : Confirmed by: Mary Brice 06-Aug-2018 00:02:29
[2018-08-06] MEDS: HYDRALAZINE HCL 10 MG TABLET PO PRN ×2 (01:35→09:16)
[2018-08-06] MEDS ORDERED: HYDRALAZINE HCL 10 MG TABLET PO ONE (01:45)
[2018-08-06] MEDS: ACETAMINOPHEN 325 MG TABLET PO PRN ×3 (06:23→19:50)
[2018-08-06] MEDS ORDERED: ALBUTEROL SULFATE HFA (90 MCG/PUFF) 200 PUFF/8.5 GM MDI IH ONE (06:37)
[2018-08-06] MEDS ORDERED: ALBUTEROL SULFATE HFA (90 MCG/PUFF) 8 GM MDI (1 MDI/ER DISP) IH PRN (06:56)
[2018-08-06] MEDS: PRENATAL VITAMIN W DHA CAPSULE PO SCH (09:14)
[2018-08-06] MEDS ORDERED: NIFEDIPINE 30 MG TAB.ER.24 PO SCH (10:00)
[2018-08-06] MEDS: FUROSEMIDE 20 MG TABLET PO SCH (11:04)
--- NOTE | 2018-08-06 11:30 | PDOC PROGRESS REPORT ---
Subjective Progress Note for:: 08/06/18 Subjective:: doing well, bottle feeding, baby and family in room Reason For Visit: POST HYPERTENSION Physical Exam - Physical Exam Vital Signs: Temp Pulse Resp BP Pulse Ox 98.3 F 45 L 15 151/95 H 96 08/06/18 10:46 08/06/18 10:46 08/06/18 10:46 08/06/18 10:46 08/06/18 10:46 Intake & Output 08/05/18 08/06/18 08/07/18 06:59 06:59 06:59 Intake Total 175 Balance 175 Weight 104.2 kg General appearance: PRESENT: no acute distress, well-developed, well-nourished Head exam: PRESENT: atraumatic, normocephalic Respiratory exam: PRESENT: clear to auscultation jennifer, symmetrical, unlabored Cardiovascular exam: PRESENT: RRR. ABSENT: diastolic murmur, rubs, systolic murmur GI/Abdominal exam: PRESENT: normal bowel sounds, soft. ABSENT: distended, guarding, mass, organolmegaly, rebound, tenderness Rectal exam: PRESENT: deferred Neurological exam: PRESENT: alert, awake, oriented to person, oriented to place, oriented to time, oriented to situation, CN II-XII grossly intact. ABSENT: motor sensory deficit Psychiatric exam: PRESENT: appropriate affect, normal mood, other - tearful regarding concern for findings on CXR in ER.. ABSENT: homicidal ideation, suicidal ideation Skin exam: PRESENT: dry, intact, warm. ABSENT: cyanosis, rash Result Laboratory Results: 08/05/18 18:06 08/05/18 18:06 08/05/18 08/05/18 08/05/18 18:06 18:06 18:06 WBC 11.1 H RBC 5.08 Hgb 15.0 Hct 44.9 MCV 89 D MCH 29.5 MCHC 33.3 RDW 13.6 Plt Count 272 Seg Neutrophils % 77.6 Lymphocytes % 14.6 Monocytes % 3.6 Eosinophils % 3.8 Basophils % 0.4 Absolute Neutrophils 8.6 H Absolute Lymphocytes 1.6 Absolute Monocytes 0.4 Absolute Eosinophils 0.4 Absolute Basophils 0.0 Sodium 147.1 H Potassium 4.0 Chloride 109 H Carbon Dioxide 25 Anion Gap 13 BUN 16 Creatinine 0.81 Est GFR ( Amer) > 60 Est GFR (Non-Af Amer) > 60 Glucose 95 Calcium 9.5 Magnesium 2.3 Total Bilirubin 0.6 AST 27 ALT 25 Alkaline Phosphatase 97 Total Protein 8.4 H Albumin 4.7 TSH 0.94 Urine Color Urine Appearance Urine pH Ur Specific Bland Urine Protein Urine Glucose (UA) Urine Ketones Urine Blood Urine Nitrite Ur Leukocyte Esterase Urine WBC (Auto) Urine RBC (Auto) 08/05/18 18:06 WBC RBC Hgb Hct MCV MCH MCHC RDW Plt Count Seg Neutrophils % Lymphocytes % Monocytes % Eosinophils % Basophils % Absolute Neutrophils Absolute Lymphocytes Absolute Monocytes Absolute Eosinophils Absolute Basophils Sodium Potassium Chloride Carbon Dioxide Anion Gap BUN Creatinine Est GFR ( Amer) Est GFR (Non-Af Amer) Glucose Calcium Magnesium Total Bilirubin AST ALT Alkaline Phosphatase Total Protein Albumin TSH Urine Color YELLOW Urine Appearance CLEAR Urine pH 6.0 Ur Specific Bland 1.012 Urine Protein NEGATIVE Urine Glucose (UA) NEGATIVE Urine Ketones NEGATIVE Urine Blood NEGATIVE Urine Nitrite NEGATIVE Ur Leukocyte Esterase LARGE H Urine WBC (Auto) 26 Urine RBC (Auto) 5 08/05/18 08/05/18 18:06 18:06 Troponin I < 0.012 NT-Pro-B Natriuret Pep 1040 H Impressions: Chest X-Ray 08/05/18 18:07 IMPRESSION: Cardiomegaly without acute abnormality of the lungs. Status: Imported from PACS Assessment & Plan - Diagnosis (1) Hypertension Qualifiers: Hypertension type: other secondary hypertension Qualified Code(s): I15.8 - Other secondary hypertension Is this a current diagnosis for this admission?: Yes Plan: antihypertensives changed to BID dosing, lasix 20mg po TID ordered. ECHO done and pending. hopefully dose change will enable patient to go home tomorrow. Vistaril added for anxiety Ambien tonight if needed for sleep. - Time Time Spent with patient: 15-24 minutes Medications reviewed and adjusted accordingly: Yes Anticipated discharge: Home Within: within 24 hours - Inpatient Certification Based on my medical assessment, after consideration of the patient's comorbidities, presenting symptoms, or acuity I expect that the services needed warrant INPATIENT care.: Yes I certify that my determination is in accordance with my understanding of Medicare's requirements for reasonable and necessary INPATIENT services [42 CFR 412.3e].: Yes Medical Necessity: Failure to Improve With Outpatient Therapy, Need Close Monitoring Due to Risk of Patient Decompensation
[2018-08-06] MEDS: HYDROXYZINE PAMOATE 50 MG CAPSULE PO PRN ×2 (12:08→21:33)
--- NOTE | 2018-08-06 12:10 | XCELERA REPORT ---
[address] [address] Transthoracic Echocardiogram Report Name: JANAK MARLOW Age: 28 yrs Gender: Female : 1990 Patient Status: Inpatient Patient Location: [address] [place] [address] Study Date: 08/06/2018 09:22 AM Height: 65 in Weight: 229 lb BSA: 2.1 m2 Procedure: A two-dimensional transthoracic echocardiogram with color flow and Doppler was performed. Images were not obtained from all of the standard acoustic windows due to the limited scope of the study. The study was technically difficult with many images being suboptimal in quality. Reason For Study: Cardiomegaly, HTN, and murmur. History: Cardiomegaly, HTN, and murmur. Ordering Physician: SUZI MORRIS Performed By: Padmini Katz Interpretation Summary LV is borderlime to mildly enlaged.This most likeky due to her recent .Woulg recommend repeat echo in 3 months or earlier if patient has symptoma.There is also mild diastolic dysfunction which may be still normal due to her recent .Ther e is no LVH. The left ventricular ejection fraction is within normal limits. LV EF is 60% The left ventricular wall motion is normal. There is no thrombus. Not a god study to assess for ASD,VSD,or PFO. The right ventricle is normal in size and function. RA and LA are upper normal size. There is no evidence of mitral valve prolapse. There is no vegetation seen on the mitral valve. There is no mitral valve stenosis. There is no mitral regurgitation noted. The aortic valve is trileaflet. The aortic valve opens well. There is no aortic valvular vegetation. There is no aortic valve stenosis There is no LVOT obstruction. No aortic regurgitation is present. There is no tricuspid stenosis. There is a trace amount of tricuspid regurgitation Unable to calculat RVSP due to lack of sufficient TR jet. There is no pulmonic valvular stenosis. There is no pulmonic valvular regurgitation. The aortic root is normal size. The inferior vena cava was not well visualized There is no pericardial effusion. MMode/2D Measurements & Calculations RVDd: 3.0 cm LVIDd: 6.6 cm FS: 32.5 % Ao root diam: 3.0 cm IVSd: 0.84 cm LVIDs: 4.4 cm EDV(Teich): 221.1 ml Ao root area: 7.0 cm2 LVPWd: 0.91 cm ESV(Teich): 89.1 ml EF(Teich): 59.7 % Doppler Measurements & Calculations MV E max veronica: MV dec slope: Ao V2 max: LV V1 max P.6 cm/sec 475.7 cm/sec2 135.4 cm/sec 4.6 mmHg MV A max veronica: MV dec time: 0.15 secAo max PG: LV V1 max: 81.8 cm/sec 7.3 mmHg 106.9 cm/sec MV E/A: 0.88 PA V2 max: 113.7 cm/sec PA max P.2 mmHg Left Ventricle LV is borderlime to mildly enlaged.This most likeky due to her recent .Woulg recommend repeat echo in 3 months or earlier if patient has symptoma.There is also mild diastolic dysfunction which may be still normal due to her recent .Ther e is no LVH. The left ventricular ejection fraction is within normal limits. LV EF is 60%. The left ventricular wall motion is normal. There is no thrombus. Not a god study to assess for ASD,VSD,or PFO. Right Ventricle The right ventricle is normal in size and function. Atria RA and LA are upper normal size. Mitral Valve There is no evidence of mitral valve prolapse. There is no vegetation seen on the mitral valve. There is no mitral valve stenosis. There is no mitral regurgitation noted. Aortic Valve The aortic valve is trileaflet. The aortic valve opens well. There is no aortic valvular vegetation. There is no aortic valve stenosis. There is no LVOT obstruction. No aortic regurgitation is present. Tricuspid Valve There is no tricuspid stenosis. There is a trace amount of tricuspid regurgitation. Unable to calculat RVSP due to lack of sufficient TR jet. Pulmonic Valve There is no pulmonic valvular stenosis. There is no pulmonic valvular regurgitation. Great Vessels The aortic root is normal size. The inferior vena cava was not well visualized. Effusions There is no pericardial effusion. : SUZI MORRIS > Suzi Morris
[2018-08-06] MEDS: NIFEDIPINE 30 MG TAB.ER.24 PO SCH (17:10)
[2018-08-06] MEDS ORDERED: ZOLPIDEM TARTRATE 5 MG TABLET PO SCH (22:00)
[2018-08-07] MEDS: FUROSEMIDE 20 MG TABLET PO SCH (09:36)
[2018-08-07] MEDS: PRENATAL VITAMIN W DHA CAPSULE PO SCH (09:36)
[2018-08-07] MEDS: NIFEDIPINE 30 MG TAB.ER.24 PO SCH (09:36)
--- NOTE | 2018-08-07 11:04 | PDOC DISCHARGE SUMMARY ---
General - Admit/Disc Date/PCP Admission Date/Primary Care Provider: 08/05/18 22:38 Discharge Date: 08/07/18 - Discharge Diagnosis (1) Hypertension Is this a current diagnosis for this admission?: Yes (2) S/P repeat low transverse Is this a current diagnosis for this admission?: Yes - Additional Information Resuscitation Status: Full Code Home Medications: Pnv95/Iron Fum/Folic Acid [ Caplet] 1 tab PO DAILY 03/30/15 Albuterol Sulfate [Ventolin Hfa 8 gm Mdi (1 Mdi/ER Disp)] 2 puff IH Q4HP PRN 08/06/18 History of Present Illness History of Present Illness: JANAK MARLOW is a 28 year old female Hospital Course Hospital Course: echocardiogram done and reassuring. Principal Biostatistician Dr. Julio consulted and he would like to see the patient in 3 month for a repeat echo. BPs are much improved. EKG is showing normal changes for post period. patient is doing well. complaining of a mild headache. is otherwise doing well. Would like to be discharged. Has an appt with MARLENY on Monday Physical Exam - Physical Exam Vital Signs: Temp Pulse Resp BP Pulse Ox 98.7 F 45 L 16 124/72 98 08/07/18 06:53 08/07/18 06:53 08/07/18 06:53 08/07/18 06:53 08/07/18 06:53 Intake & Output 08/06/18 08/07/18 08/08/18 06:59 06:59 06:59 Intake Total 935 Balance 935 Weight 104.2 kg General appearance: PRESENT: no acute distress, cooperative - extremities: no cyanosis/clubbing/edema abdomen: soft and appropriately tender for post operat jamison period. No breakdown of incision Result Laboratory Results: 08/05/18 18:06 08/05/18 18:06 08/05/18 18:06 Clean Catch Midstream Urine Culture - Final Mixed Urogenital Ana 08/05/18 08/05/18 18:06 18:06 Troponin I < 0.012 NT-Pro-B Natriuret Pep 1040 H Impressions: Chest X-Ray 08/05/18 18:07 IMPRESSION: Cardiomegaly without acute abnormality of the lungs. Plan Discharge Plan: discharge home with Procardia BID and continue with lasix x 2 more days. Keep follow up appt on Monday at [facility] Acute Heart Failure Is this a Heart Failure Patient?: No
[2018-08-07 11:10] VITALS: BP 148/86
== END 2018-08-07 11:27 | disposition home or self-care (01) ==
LOC: ER 16:36 → EH 22:38 → 2N 08-06 00:45
PROVIDERS: ADMIT Obstetrics & Gynecology; ATTEND Obstetrics & Gynecology
DX: O16.5 Unspecified maternal hypertension, complicating the puerperium (principal); Z98.890 Other specified postprocedural states; O99.43 Diseases of the circulatory system complicating the puerperium; R00.0 Tachycardia, unspecified
CPT/HCPCS: 93005; 99284; 96374; 36415; 87086; 83735; 84443; 85025; 80053; 81001; 84484; 83880; 93306; 71045; 93010; G0378 ×3; J3490 ×4; J0360

== ENCOUNTER 2018-09-15 22:40 | Emergency (ER) | payer BC ==
[2018-09-16] MEDS ORDERED: LORAZEPAM INJ 2 MG/1 ML VIAL IV ONE (00:53)
--- NOTE | 2018-09-16 00:54 | ER Document Report ---
ED General <VIRGINIAANTOINETTE - Last Filed: 09/16/18 10:32> - General TRAVEL OUTSIDE OF THE [place] IN LAST 30 DAYS: No <MELODY SUAREZ - Last Filed: 09/17/18 05:30> - General Chief Complaint: High Blood Pressure Stated Complaint: BLOOD PRESSURE ISSUE Time Seen by Provider: 09/16/18 00:20 Primary Care Provider: LAURA MORRIS MD [ACTIVE STAFF] - 09/17/18 Notes: Patient is a pleasant 28-year-old female presents with complaint of palpitati ons. Patient also feels that his blood pressures been running high. She was diagnosed high blood pressure a few months ago. She was placed on Procardia for this. She said she got better and stopped taking the Procardia. She said recently she is noticed that she sometimes does get stressed and her blood pressure does go high therefore start taking her Procardia. She says she took 1 tablet this morning and another this afternoon because her blood pressure was still high. She says that she is also been experiencing some palpitations. No leg pain or leg swelling. No fevers. no chest pain. No difficulty breathing. Some intermittent headache. She says the headache is gradual in onset and feels more like a pressure in her head that occurs when her blood pressure goes up. (MELODY SUAREZ) - Related Data Allergies/Adverse Reactions: adhesive tape Adverse Reaction (Verified 08/05/18 16:38) Past Medical History - Social History Smoking Status: Never Smoker Frequency of alcohol use: None Drug Abuse: None Family History: Reviewed & Not Pertinent Patient has suicidal ideation: No Patient has homicidal ideation: No - Past Medical History Cardiac Medical History: Denies: Hx Pulmonary Embolism Pulmonary Medical History: Reports: Hx Asthma Denies: Hx Sleep Apnea, Hx Tuberculosis Renal/ Medical History: Denies: Hx Peritoneal Dialysis Past Surgical History: Reports: Hx Section - Immunizations Hx Diphtheria, Pertussis, Tetanus Vaccination: Yes <MELODY SUAREZ - Last Filed: 09/17/18 05:30> Review of Systems <MELODY SUAREZ - Last Filed: 09/17/18 05:30> - Review of Systems Notes: My Normal Review Basic REVIEW OF SYSTEMS: CONSTITUTIONAL : Denies fever, chills, or sweats. Denies recent illness. EENT: Denies eye, ear, throat, or mouth pain or symptoms. Denies nasal or sinus congestion. CARDIOVASCULAR: Denies chest pain. RESPIRATORY: Denies cough, cold, or chest congestion. Denies shortness of breath, difficulty breathing, or wheezing. GASTROINTESTINAL: Denies abdominal pain. Denies nausea, vomiting, or diarrhea. GENITOURINARY: Denies difficulty urinating, painful urination, burning, frequency, or blood in urine. MUSCULOSKELETAL: Denies neck or back pain or joint pain or swelling. SKIN: Denies rash or skin lesions. NEUROLOGICAL: Denies altered mental status or loss of consciousness. Has a headache. Denies weakness or paralysis or loss of use of either side. Denies problems with gait or speech. Denies sensory or motor loss. ALL OTHER SYSTEMS REVIEWED AND NEGATIVE. (MELODY SUAREZ) Physical Exam <MELODY SUAREZ - Last Filed: 09/17/18 05:30> - Vital signs Vitals: Temp Pulse Resp BP Pulse Ox 99.0 F 54 L 18 159/95 H 98 09/15/18 22:47 09/15/18 22:47 09/15/18 22:47 09/15/18 22:47 09/15/18 22:47 - Notes Notes: General Appearance: Well nourished, alert, cooperative, no acute distress, no obvious discomfort. Well-appearing. Vitals: reviewed, See vital signs table. Head: no swelling or tenderness to the head Eyes: PERRL, EOMI, Conjuctiva clear Mouth: No decreasd moisture Lungs: No wheezing, No rales, No rhonci, No accessory muscle use, good air exchange bilaterally. Heart: Normal rate, Regular rythm, No murmur, no rub Abdomen: Normal BS, soft, No rigidity, No abdominal tenderness, No guarding, no rebound, no abdominal masses, no organomegaly Extremities: strength 5/5 in all extremities, good pulses in all extremities, no swelling or tenderness in the extremities, no edema. Skin: warm, dry, appropriate color, no rash Neuro: speech clear, oriented x 3, normal affect, responds appropriately to questions. Cranial nerves II through XII are intact. Distal sensation intact. Patient was all extremities without difficulty. Normal gait. (MELODY SUAREZ) Course - Laboratory Result Diagrams: 09/16/18 01:00 09/16/18 01:00 <ANTOINETTE COLEMAN - Last Filed: 09/16/18 10:32> - Laboratory Result Diagrams: 09/16/18 01:00 09/16/18 01:00 <MELODY SUAREZ - Last Filed: 09/17/18 05:30> - Re-evaluation Re-evalutation: 09/16/18 10:32 [facility] combination medication cost over $130. Would like to split it to metoprolol 25 mg and HCTZ 12.5 mg separate pills versus combination. Reports that would cause the patient probably $13. Separation of medication approved. (ANTOINETTE COLEMAN) 09/17/18 05:29 Patient did have intermittent bigeminy. She was tachycardic with this. W henever the bigeminy went away her heart rate was in the 90s. Her troponin is negative. BNP is just only slightly elevated. She does not have fluid in her lungs. Her x-ray is clear. Lung romero are clear. She has no edema in her lower extremities. Her previous echo with Dr. Garcia showed just mild left ventricular enlargement. She was placed to follow-up with Dr. Julio but still has not. I informed her the importance of following up with Dr. Garcia for the repeat echo. She is agreeable to call his office in the morning. Clinically she looks very well and has no distress. Her blood pressure has normalized. I will change her from Procardia to metoprolol with hydrochlorothiazide as this will more likely to help control blood pressure and also help with her palpitations. I informed her to have a low threshold to return to ER if she has chest pain, difficulty breathing, worsening blood pressure issues, or she feels like her heart is racing. Patient agrees with plan will be discharged home. I did do a bedside ultrasound of her heart. She appeared to have good concentric squeeze without any pericardial effusion. Dictation of this chart was performed using voice recognition software; therefore, there may be some unintended grammatical errors. 09/17/18 05:30 (MELODY SUAREZ) - Vital Signs Vital signs: Temp Pulse Resp BP Pulse Ox 98.1 F 54 L 20 131/83 H 96 09/16/18 06:34 09/15/18 22:47 09/16/18 06:34 09/16/18 06:34 09/16/18 06:34 - Laboratory Laboratory results interpreted by me: 09/16/18 09/16/18 09/16/18 01:00 01:00 01:00 WBC 10.7 H RDW 14.7 H Chloride 108 H NT-Pro-B Natriuret Pep 317 H - EKG Interpretation by Me Additional EKG results interpreted by me: 09/16/18 00:53 EKG is reviewed and interpreted by me. EKG shows sinus tachycardia with rate 115 bpm. Patient has multiple PVCs and is in bigeminy on the EKG. ID interval, QRS duration is within normal range. QTc interval slightly prolonged. (MELODY SUAREZ) Discharge <ANTOINETTE COLEMAN - Last Filed: 09/16/18 10:32> <MELODY SUAREZ - Last Filed: 09/17/18 05:30> - Discharge Clinical Impression: Bigeminy Hypertension Qualifiers: Hypertension type: unspecified Qualified Code(s): I10 - Essential (primary) hypertension Condition: Good Disposition: HOME, SELF-CARE Additional Instructions: Please follow up closely with Dr. Morris. Call his office Monday morning to make a close follow-up appointment. He does have a very low threshold to return to the ER if you have chest pain, difficult to breathing, leg swelling, recurrent headaches, or if your blood pressure is running high again. Please stop talking the procardia and start taking the metoprolol as prescribed. Prescriptions: Metoprolol Jensen/Hydrochlorothiaz [Metoprolol ER-Hctz 25-12.5 mg] 1 each PO DAILY #30 tab.er.24h Forms: Return to Work Referrals: LAURA MORRIS MD [ACTIVE STAFF] - 09/17/18
[2018-09-16 01:10] LABS: ABSOLUTE EOSINOPHILS # (AUTO) 0.3 10^3/uL (0.0-0.6); ABSOLUTE LYMPHOCYTES (AUTO) 1.8 10^3/uL (0.5-4.7); ABSOLUTE MONOCYTES (AUTO) 0.4 10^3/uL (0.1-1.4); ABSOLUTE NEUT (AUTO) 8.1 10^3/uL (1.7-8.2); BASOPHILS % (AUTO) 0.3 % (0-2); EOSINOPHILS % (AUTO) 2.9 % (0-6); HEMATOCRIT 40.8 % (36.0-47.0); HEMOGLOBIN 13.9 g/dL (12.0-15.5); MEAN CORPUSCULAR HEMOGLOBIN 29.4 pg (27.0-33.4); MEAN CORPUSCULAR VOLUME 87 fl (80-97); MONOCYTES % (AUTO) 3.4 % (3-13); PLATELET COUNT 211 10^3/uL (150-450); RED BLOOD COUNT 4.72 10^6/uL (3.72-5.28); RED CELL DISTRIBUTION WIDTH 14.7 % (11.5-14.0); SEGMENTED NEUTROPHILS % (AUTO) 76.4 % (42-78); TOTAL CELLS COUNTED % (AUTO) 100 %; WHITE BLOOD COUNT 10.7 10^3/uL (4.0-10.5)
[2018-09-16 01:32] LABS: ANION GAP 13 (5-19); BLOOD UREA NITROGEN 14 mg/dL (7-20); CALCIUM 9.5 mg/dL (8.4-10.2); CARBON DIOXIDE 22 mmol/L (22-30); CHLORIDE 108 mmol/L (98-107); GLUCOSE 110 mg/dL (75-110); POTASSIUM 4.3 mmol/L (3.6-5.0); SODIUM 142.8 mmol/L (137-145)
--- NOTE | 2018-09-16 01:59 | RADIOLOGY REPORT (SQ) ---
EXAM DESCRIPTION: XR CHEST 1 VIEW COMPLETED DATE/TME: 09/16/2018 00:52 CLINICAL HISTORY: 28 years, Female, hypertension, intermittent head pressure COMPARISON: 08/05/2018 NUMBER OF VIEWS: One TECHNIQUE: AP view the chest LIMITATIONS: None. FINDINGS: The lungs are clear. The heart is normal in size. There is no pneumothorax or pleural effusion. The bones are unremarkable. IMPRESSION: No acute cardiopulmonary abnormality. copyright 2010 [employer]- All Rights Reserved
--- NOTE | 2018-09-16 02:01 | RADIOLOGY REPORT (SQ) ---
CT HEAD WITHOUT IV CONTRAST EXAM DATE: 09/16/2018 12:52 AM CDT HISTORY: Hypertension, intermittent head pressure. COMPARISON: None. TECHNIQUE: CT scan of the brain without IV contrast. This exam was performed according to our departmental dose-optimization program, which includes automated exposure control, adjustment of the mA and/or kV according to patient size and/or use of iterative reconstruction technique. FINDINGS: The ventricles, cisterns, and sulci are age-appropriate. No evidence of acute infarction, intracranial hemorrhage, extra-axial fluid collection, or midline shift. Mild mucosal thickening of the bilateral maxillary sinuses. No air-fluid levels are identified. The mastoid air cells are clear. No depressed skull fracture. IMPRESSION: No acute intracranial findings.
[2018-09-16] MEDS ORDERED: HYDROXYZINE PAMOATE 25 MG CAPSULE (4 CAP/ER DISP) PO PRN (06:02)
[2018-09-16 07:11] VITALS: BP 131/83
--- NOTE | 2018-09-16 09:43 | EKG REPORT ---
SEVERITY:- ABNORMAL ECG - SINUS TACHYCARDIA VENTRICULAR BIGEMINY PROBABLE LEFT ATRIAL ABNORMALITY BORDERLINE T ABNORMALITIES, ANTERIOR LEADS : Confirmed by: Mary Brice 16-Sep-2018 09:42:17
== END 2018-09-16 06:44 | disposition home or self-care (01) ==
LOC: ER 22:40
DX: I10 Essential (primary) hypertension (principal); R00.8 Other abnormalities of heart beat; R51 Headache; R00.2 Palpitations
CPT/HCPCS: 93005; 99285; 96374; 36415; 84443; 84703; 85025; 80048; 84484; 85379; 83880; 71045; 70450; 93010; J3490; J2060

== ENCOUNTER 2018-10-22 22:17 | Emergency (ER) | payer BC ==
[2018-10-23 03:31] LABS: ABSOLUTE EOSINOPHILS # (AUTO) 0.2 10^3/uL (0.0-0.6); ABSOLUTE LYMPHOCYTES (AUTO) 1.9 10^3/uL (0.5-4.7); ABSOLUTE MONOCYTES (AUTO) 0.5 10^3/uL (0.1-1.4); ABSOLUTE NEUT (AUTO) 5.5 10^3/uL (1.7-8.2); BASOPHILS % (AUTO) 0.4 % (0-2); EOSINOPHILS % (AUTO) 2.7 % (0-6); HEMOGLOBIN 14.1 g/dL (12.0-15.5); LYMPHOCYTES % (AUTO) 22.9 % (13-45); MEAN CORPUSCULAR HEMOGLOBIN 29.2 pg (27.0-33.4); MEAN CORPUSCULAR HGB CONC 34.3 g/dL (32.0-36.0); MEAN CORPUSCULAR VOLUME 85 fl (80-97); MONOCYTES % (AUTO) 6.3 % (3-13); PLATELET COUNT 186 10^3/uL (150-450); RED BLOOD COUNT 4.82 10^6/uL (3.72-5.28); RED CELL DISTRIBUTION WIDTH 14.6 % (11.5-14.0); SEGMENTED NEUTROPHILS % (AUTO) 67.7 % (42-78); TOTAL CELLS COUNTED % (AUTO) 100 %; WHITE BLOOD COUNT 8.1 10^3/uL (4.0-10.5)
[2018-10-23 03:41] LABS: ALBUMIN 4.7 g/dL (3.5-5.0); ALKALINE PHOSPHATASE 55 U/L (38-126); ANION GAP 10 (5-19); ASPARTATE AMINO TRANSFERASE 24 U/L (14-36); BILIRUBIN,DIRECT 0.3 mg/dL (0.0-0.4); BILIRUBIN,TOTAL 0.8 mg/dL (0.2-1.3); BLOOD UREA NITROGEN 8 mg/dL (7-20); CALCIUM 9.7 mg/dL (8.4-10.2); CARBON DIOXIDE 26 mmol/L (22-30); CHLORIDE 105 mmol/L (98-107); GLUCOSE 102 mg/dL (75-110); POTASSIUM 3.9 mmol/L (3.6-5.0); TOTAL PROTEIN 7.8 g/dL (6.3-8.2)
[2018-10-23 03:43] LABS: APPEARANCE,URINE SLIGHTLY-CLOUDY; BILIRUBIN,URINE NEGATIVE (NEGATIVE); COLOR,URINE STRAW; GLUCOSE, URINE NEGATIVE (NEGATIVE); KETONES,URINE TRACE mg/dL (NEGATIVE); LEUKOCYTE ESTERASE,URINE NEGATIVE (NEGATIVE); NITRITE,URINE NEGATIVE (NEGATIVE); PROTEIN,URINE NEGATIVE (NEGATIVE); URINE SPECIFIC GRAVITY 1.005; UROBILINOGEN,URINE NEGATIVE mg/dL (<2.0)
--- NOTE | 2018-10-23 04:54 | RADIOLOGY REPORT (SQ) ---
EXAM DESCRIPTION: CT HEAD WITHOUT IV CONTRAST COMPLETED DATE/TME: 10/23/2018 03:05 CLINICAL HISTORY: 28 years, Female, worst headahce of life COMPARISON: None Available. Technique: Contiguous axial images of the brain were obtained without the administration of intravenous contrast. Coronal and sagittal reformats obtained and reviewed. This exam was performed according to our departmental dose-optimization program which includes use of Automated Exposure Control, adjustment of the mA and/or kV according to patient size and/or use of iterative reconstruction technique. Findings: Brain: No hemorrhage. No territorial infarct. No mass effect. No herniation. Ventricles: Within normal limits for patient's age. Bones: No acute osseous abnormality. Paranasal sinuses: Unremarkable. Mastoid air cells: Unremarkable. Soft tissues: No acute abnormality. IMPRESSION: No acute intracranial abnormalities.
[2018-10-23] MEDS ORDERED: PROCHLORPERAZINE EDISYLATE INJ 10 MG/2 ML VIAL IM ONE ×2 (05:09→05:12)
[2018-10-23] MEDS ORDERED: KETOROLAC TROMETHAMINE INJ/PF 30 MG/1 ML SDV IV ONE (05:09)
[2018-10-23] MEDS ORDERED: KETOROLAC TROMETHAMINE 60 MG/2 ML SDV IM ONE (05:11)
--- NOTE | 2018-10-23 06:23 | ER Document Report ---
ED General - General Chief Complaint: Headache Stated Complaint: HEADACHE,HIGH BLOOD PRESSURE Time Seen by Provider: 10/23/18 02:50 Primary Care Provider: LISA CROWE NP [Primary Care Provider] - Follow up as needed Notes: Patient is a 28-year-old female presents to the emergency department with a "worst headache of my life." Patient states she was at her primary care provider today based on her high blood pressure. States her readings were 160/107. States she was started on amlodipine for her blood pressure as well as Prozac because she feels as though she has depression. Patient states she was diagnosed with hypertension approximately 3 months ago after giving to her child. States she was on Procardia and then on HCTZ. States today is when her primary care provider changed her to amlodipine. Patient states she has had headaches off and on with this recent diagnosis of hypertension but states today it is the worst of her life. Patient is denying any nausea, vomiting, diarrhea, fevers, blurred vision, photophobia, history of migraines. TRAVEL OUTSIDE OF THE [place] IN LAST 30 DAYS: No - Related Data Allergies/Adverse Reactions: adhesive tape Adverse Reaction (Verified 08/05/18 16:38) Past Medical History - General Information source: Patient - Social History Smoking Status: Unknown if Ever Smoked Family History: Reviewed & Not Pertinent Patient has suicidal ideation: No Patient has homicidal ideation: No - Past Medical History Cardiac Medical History: Denies: Hx Pulmonary Embolism Pulmonary Medical History: Reports: Hx Asthma Denies: Hx Sleep Apnea, Hx Tuberculosis Renal/ Medical History: Denies: Hx Peritoneal Dialysis Past Surgical History: Reports: Hx Section - Immunizations Hx Diphtheria, Pertussis, Tetanus Vaccination: Yes Review of Systems - Review of Systems Constitutional: denies: Fever, Weakness EENT: See HPI Cardiovascular: denies: Chest pain Respiratory: denies: Short of breath Gastrointestinal: See HPI Genitourinary: No symptoms reported Female Genitourinary: No symptoms reported Musculoskeletal: No symptoms reported Skin: No symptoms reported Hematologic/Lymphatic: No symptoms reported Neurological/Psychological: See HPI Physical Exam - Vital signs Vitals: Temp Pulse Resp BP Pulse Ox 98.6 F 77 20 156/94 H 100 10/22/18 23:11 10/22/18 23:11 10/22/18 23:11 10/22/18 23:11 10/22/18 23:11 - Notes Notes: GENERAL: Alert, interacts well. Holding her hands on the top of her head. HEAD: Normocephalic, atraumatic. EYES: Pupils equal, round, and reactive to light. Extraocular movements intact. ENT: Oral mucosa moist, tongue midline. NECK: Full range of motion. Supple. Trachea midline. No nuchal rigidity noted LUNGS: Clear to auscultation bilaterally, no wheezes, rales, or rhonchi. No respiratory distress. HEART: Regular rate and rhythm. No murmur ABDOMEN: Soft, non-tender. Non-distended. Bowel sounds present in all 4 quadrants. EXTREMITIES: Moves all 4 extremities spontaneously. No edema, normal radial and dorsalis pedis pulses bilaterally. No cyanosis. 5 out of 5 strength noted all 4 extremities. BACK: no cervical, thoracic, lumbar midline tenderness. No saddle anesthesia, normal distal neurovascular exam. NEUROLOGICAL: Alert and oriented x3. Normal speech. cranial nerves II through XII grossly intact PSYCH: Normal affect, normal mood. SKIN: Warm, dry, normal turgor. No rashes or lesions noted. Course - Re-evaluation Re-evalutation: Laboratory 10/22/18 10/23/18 10/23/18 23:15 03:10 03:10 WBC 8.1 RBC 4.82 Hgb 14.1 Hct 41.0 MCV 85 MCH 29.2 MCHC 34.3 RDW 14.6 H Plt Count 186 Seg Neutrophils % 67.7 Lymphocytes % 22.9 Monocytes % 6.3 Eosinophils % 2.7 Basophils % 0.4 Absolute Neutrophils 5.5 Absolute Lymphocytes 1.9 Absolute Monocytes 0.5 Absolute Eosinophils 0.2 Absolute Basophils 0.0 Sodium 141.0 Potassium 3.9 Chloride 105 Carbon Dioxide 26 Anion Gap 10 BUN 8 Creatinine 0.76 Est GFR ( Amer) > 60 Est GFR (Non-Af Amer) > 60 Glucose 102 Calcium 9.7 Total Bilirubin 0.8 Direct Bilirubin 0.3 Neonat Total Bilirubin Not Reportable Neonat Direct Bilirubin Not Reportable Neonat Indirect Bili Not Reportable AST 24 ALT 22 Alkaline Phosphatase 55 Total Protein 7.8 Albumin 4.7 Beta HCG, Quant < 2.39 Total Beta HCG NEGATIVE Urine Color STRAW Urine Appearance SLIGHTLY-CLOUDY Urine pH 6.0 Ur Specific [place] 1.005 Urine Protein NEGATIVE Urine Glucose (UA) NEGATIVE Urine Ketones TRACE H Urine Blood NEGATIVE Urine Nitrite NEGATIVE Urine Bilirubin NEGATIVE Urine Urobilinogen NEGATIVE Ur Leukocyte Esterase NEGATIVE Urine WBC (Auto) 1 Urine RBC (Auto) 1 Urine Bacteria (Auto) TRACE Squamous Epi Cells Auto 8 Urine Ascorbic Acid NEGATIVE Head CT 10/23/18 03:05 IMPRESSION: No acute intracranial abnormalities. Patient's labs show no signs of end organ damage, Pt CT also negative. Patient was treated with Compazine and Toradol in the emergency department. Patient was initially straight stuck for her blood work. She is requesting not to have an IV. In discussing patient's lab and imaging results with her at bedside she starts crying. States she feels as though she has depression. States she was just started on Prozac today. States "everything is just so hard." Patient does have family in the room with her at this time. Patient's denying SI or HI. Patient does have an appointment with her primary care provider in 1 week to discuss whether or not Prozac is helping. Also discussed talking to her primary care provider for talk therapy. Patient voices understanding and is agreeable with plan for discharge. Discussed continued watch of her blood pressure and to take her amlodipine as prescribed. At this time will discharge with return precautions and follow-up recommendations. Verbal discharge instructions given a the bedside and opportunity for questions given. Medication warnings reviewed. Patient is in agreement with this plan and has verbalized understanding of return precautions and the need for primary care follow-up in the next 24-72 hours. This medical record was dictated with voice recognizing software. There may be grammatical, syntax errors that are unintended. - Vital Signs Vital signs: Temp Pulse Resp BP Pulse Ox 98.6 F 76 18 153/93 H 99 10/23/18 03:08 10/23/18 03:08 10/23/18 03:08 10/23/18 03:08 10/23/18 03:08 - Laboratory Result Diagrams: 10/23/18 03:10 10/23/18 03:10 Laboratory results interpreted by me: 10/22/18 10/23/18 23:15 03:10 RDW 14.6 H Urine Ketones TRACE H Discharge - Discharge Clinical Impression: Headache Qualifiers: Headache type: unspecified Headache chronicity pattern: unspecified pattern Intractability: not intractable Qualified Code(s): R51 - Headache Condition: Stable Disposition: HOME, SELF-CARE Instructions: Headache ([facility]) Additional Instructions: As we discussed you have been seen and treated in the emergency department for your headache, blood pressure concerns. Imaging of your head reveals no signs of abnormalities. Your labs also revealed no sign of kidney damage. Please make sure you are taking amlodipine and Prozac as prescribed. Please also make sure you are taking your blood pressure once in the morning at once at night for continued evaluation. Please make sure he follow-up with your primary care provider in the next 24 to 48 hours. Please also make sure you return to the emergency room for any further concerns. Forms: Return to Work, Elevated Blood Pressure Referrals: LISA CROWE NP [Primary Care Provider] - Follow up as needed
[2018-10-23 06:50] VITALS: BP 151/86
== END 2018-10-23 06:15 | disposition home or self-care (01) ==
LOC: ER 22:17
DX: R51 Headache (principal); I10 Essential (primary) hypertension; Z79.899 Other long term (current) drug therapy; J45.909 Unspecified asthma, uncomplicated
CPT/HCPCS: 36415; 84702; 85025; 80053; 81001; 70450; J1885; J0780; 96372; 99284